=== PATIENT | male | born 1975 | race African-American/Black ===

== ENCOUNTER 2024-03-29 09:45 | Outpatient (RCR) | payer BC, SELFPAY | END 2024-06-28 13:37 | disposition home or self-care (01) | PROVIDERS: PCP Physician Assistant Medical; Visit Provider Physician Assistant Medical | DX: M54.50 Low back pain, unspecified (principal); G89.29 Other chronic pain; M54.6 Pain in thoracic spine; Z51.89 Encounter for other specified aftercare | CPT/HCPCS: 97032; 97035; 97110; 97140; 97161 ==

== ENCOUNTER 2024-08-28 18:13 | Outpatient (CLI) | payer BC, SELFPAY | END 2024-08-28 18:14 | disposition home or self-care (01) | LOC: LKVREF 18:13 | PROVIDERS: PCP Physician Assistant Medical | DX: R21 Rash and other nonspecific skin eruption (principal) | CPT/HCPCS: 87252 ==